=== PATIENT | female | born 1970 | race Two or more races ===

== ENCOUNTER 2019-04-27 18:26 | Emergency (ER) | payer SELFPAY ==
--- NOTE | 2019-04-27 20:16 | ER Document Report ---
ED Medical Screen (RME) - General Chief Complaint: Urinary Problem Stated Complaint: URINARY ISSUE Time Seen by Provider: 04/27/19 20:07 Primary Care Provider: POWER PERALES [Primary Care Provider] - Follow up as needed Notes: HPI: 48-year-old insulin-dependent diabetic female presenting to the emergency department complaining of worsening lower abdominal pain over the last week. No fever. Has had nausea no vomiting. Patient states that she began having discomfort with urination in February. She was told she had a urinary infection. Patient states that she did have an ultrasound and was told that she had "air around the bladder". She states she was placed on antibiotics and referred to urology. Patient states she has been following with Dr. Rocha urology in [place]. States that she is still on antibiotics feels no better. Patient reports pain across the pelvis and lower abdomen. Patient states they tried to do cystoscopy but were unable to get a definitive look at what might be causing the problem. Patient states that she is no longer able to urinate and has to self catheterize at home in order to void I have greeted and performed a rapid initial assessment of this patient. A comprehensive ED assessment and evaluation of the patient, analysis of test results and completion of the medical decision making process will be conducted by additional ED providers PHYSICAL EXAMINATION: GENERAL: Well-appearing, well-nourished and in mild acute distress. HEAD: Atraumatic, normocephalic. EYES: sclera anicteric, conjunctiva are normal. ENT: Moist mucous membranes. NECK: Normal range of motion LUNGS: Normal work of breathing HEART: 2+ radial pulses bilaterally ABD: limited by positioning for exam in triage. Moderate tenderness with guarding across the lower abdomen and suprapubic region EXTREMITIES: no pitting or edema. No cyanosis. NEUROLOGICAL: No focal neurological deficits. Moves all extremities spontaneously and on command. PSYCH: Normal mood, normal affect. SKIN: Warm, Dry, normal turgor, no rashes or lesions noted. - Related Data Allergies/Adverse Reactions: No Known Allergies Allergy (Verified 04/27/19 20:03) Past Medical History - Past Medical History Cardiac Medical History: Reports: Hx Hypertension Endocrine Medical History: Reports: Hx Diabetes Mellitus Type 2 Past Surgical History: Reports: Hx Section, Hx Tubal Ligation - Immunizations Hx Diphtheria, Pertussis, Tetanus Vaccination: Yes Physical Exam - Vital signs Vitals: Temp Pulse Resp BP 98.5 F 105 H 20 135/77 H 04/27/19 20:08 04/27/19 20:08 04/27/19 20:08 04/27/19 20:08 Course - Vital Signs Vital signs: Temp Pulse Resp BP Pulse Ox 98.5 F 105 H 20 135/77 H 04/27/19 20:08 04/27/19 20:08 04/27/19 20:08 04/27/19 20:08 Doctor's Discharge - Discharge Referrals: LOCALMD,NO [Primary Care Provider] - Follow up as needed
[2019-04-27 21:26] LABS: ABSOLUTE BASOPHILS # (AUTO) 0.1 10^3/uL (0.0-0.2); ABSOLUTE EOSINOPHILS # (AUTO) 0.1 10^3/uL (0.0-0.6); ABSOLUTE LYMPHOCYTES (AUTO) 2.6 10^3/uL (0.5-4.7); ABSOLUTE MONOCYTES (AUTO) 0.7 10^3/uL (0.1-1.4); ABSOLUTE NEUT (AUTO) 8.4 10^3/uL (1.7-8.2); BASOPHILS % (AUTO) 0.7 % (0-2); EOSINOPHILS % (AUTO) 0.9 % (0-6); HEMATOCRIT 41.4 % (36.0-47.0); HEMOGLOBIN 14.2 g/dL (12.0-15.5); LYMPHOCYTES % (AUTO) 21.6 % (13-45); MEAN CORPUSCULAR HEMOGLOBIN 29.5 pg (27.0-33.4); MEAN CORPUSCULAR HGB CONC 34.3 g/dL (32.0-36.0); MEAN CORPUSCULAR VOLUME 86 fl (80-97); MONOCYTES % (AUTO) 5.8 % (3-13); PLATELET COUNT 239 10^3/uL (150-450); RED BLOOD COUNT 4.81 10^6/uL (3.72-5.28); RED CELL DISTRIBUTION WIDTH 13.7 % (11.5-14.0); TOTAL CELLS COUNTED % (AUTO) 100 %; WHITE BLOOD COUNT 11.8 10^3/uL (4.0-10.5)
[2019-04-27 21:40] LABS: ALBUMIN 4.3 g/dL (3.5-5.0); ALKALINE PHOSPHATASE 175 U/L (38-126); ANION GAP 11 (5-19); ASPARTATE AMINO TRANSFERASE 31 U/L (14-36); BILIRUBIN,DIRECT 0.1 mg/dL (0.0-0.4); BILIRUBIN,TOTAL 0.5 mg/dL (0.2-1.3); BLOOD UREA NITROGEN 16 mg/dL (7-20); CALCIUM 9.6 mg/dL (8.4-10.2); CARBON DIOXIDE 22 mmol/L (22-30); CHLORIDE 106 mmol/L (98-107); GLUCOSE 142 mg/dL (75-110); POTASSIUM 4.1 mmol/L (3.6-5.0); TOTAL PROTEIN 7.6 g/dL (6.3-8.2)
--- NOTE | 2019-04-27 23:30 | RADIOLOGY REPORT (SQ) ---
EXAM DESCRIPTION: CT ABDOMEN PELVIS WITH IV CONTRAST COMPLETED DATE/TME: 04/27/2019 20:14 CLINICAL HISTORY: 48 years, Female, lower abd pain COMPARISON: None. TECHNIQUE: [id number] Images stored on PACS. All CT scanners at this facility use dose modulation, iterative reconstruction, and/or weight based dosing when appropriate to reduce radiation dose to as low as reasonably achievable (ALARA). [facility]: Dose Right [facility]: CareDose [facility]: Dose Right [facility]: Teradose 4D [facility]: KRAFTWERK LIMITATIONS: None. FINDINGS: Visualized lung bases are unremarkable. Osseous structures are grossly intact. Fatty infiltrative change to the liver. The spleen, adrenal glands, pancreas, right kidney are unremarkable. Severely atrophic appearance to the left kidney with left renal cortical scar formation. Nonobstructing 2 mm left renal calculus inferiorly. Partially exophytic 10 mm right renal cyst noted. The gallbladder is present, contracted. There is no evidence for bowel obstruction. Normal appendix. Scattered colonic diverticuli. No CT evidence for acute diverticulitis. Diffuse urinary bladder wall thickening. Outpouching of the left aspect of the urinary bladder consistent with urinary bladder diverticulum. No free air or free fluid. IMPRESSION: Fatty infiltrative change to the liver. Diffuse urinary bladder wall thickening, correlate with urinalysis. 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 Scattered colonic diverticuli without CT evidence for diverticulitis. Severe left renal atrophy and cortical scar formation. Nonobstructing left renal calculus.. TECHNICAL DOCUMENTATION: Quality ID # [id number]: Final reports with documentation of one or more dose reduction techniques (e.g., Automated exposure control, adjustment of the mA and/or kV according to patient size, use of iterative reconstruction technique) copyright 2011 [employer]- All Rights Reserved
[2019-04-28] MEDS ORDERED: LIDOCAINE 2% URO-JET 5 ML KIT MM ONE (02:38)
[2019-04-28] MEDS ORDERED: MORPHINE SULFATE 10 MG/ML INJ IV ONE (02:38)
[2019-04-28] MEDS ORDERED: ONDANSETRON HCL INJ/PF 4 MG/2 ML SDV IV ONE (02:38)
--- NOTE | 2019-04-28 02:40 | ER Document Report ---
ED GI/ - General Chief Complaint: Urinary Problem Stated Complaint: URINARY ISSUE Time Seen by Provider: 04/27/19 20:07 Notes: Patient is a 48-year-old female that comes emergency department for chief complaint of lower abdominal pain. She states that she always has the pain and she has to self cath now for an undiagnosed urinary problem but she states the pain is worse today than usual. This is been going on for a couple months now. She was evaluated for inability to urinate by urology Dr. Rocha, she states that she had a CAT scan and a cystoscopy, she states she was told the cystoscopy was "cloudy and indeterminate". She states there is no diagnosis for why she has to self catheterize to this time other than there was air around the bladder and her bladder was swollen. She does not report a history of kidney stones, she has had a , tubal ligation, has a history of type 2 diabetes and hypertension. She is currently taking doxycycline for a urinary tract infection. - Related Data Allergies/Adverse Reactions: No Known Allergies Allergy (Verified 04/27/19 20:03) Past Medical History - General Information source: Patient - Social History Smoking Status: Former Smoker Frequency of alcohol use: None Drug Abuse: None Lives with: Family Family History: Reviewed & Not Pertinent Patient has suicidal ideation: No Patient has homicidal ideation: No - Past Medical History Cardiac Medical History: Reports: Hx Hypertension Endocrine Medical History: Reports: Hx Diabetes Mellitus Type 2 Past Surgical History: Reports: Hx Section, Hx Tubal Ligation - Immunizations Hx Diphtheria, Pertussis, Tetanus Vaccination: Yes Review of Systems - Review of Systems Constitutional: No symptoms reported EENT: No symptoms reported Cardiovascular: No symptoms reported Respiratory: No symptoms reported Gastrointestinal: See HPI Genitourinary: See HPI Female Genitourinary: No symptoms reported Musculoskeletal: No symptoms reported Skin: No symptoms reported Hematologic/Lymphatic: No symptoms reported Neurological/Psychological: No symptoms reported Physical Exam - Vital signs Vitals: Temp Pulse Resp BP 98.5 F 105 H 20 135/77 H 04/27/19 20:08 04/27/19 20:08 04/27/19 20:08 04/27/19 20:08 - Notes Notes: GENERAL: Alert, interacts well. No acute distress. HEAD: Normocephalic, atraumatic. EYES: Pupils equal, round, and reactive to light. Extraocular movements intact. ENT: Oral mucosa moist, tongue midline. Oropharynx unremarkable. Airway patent. Nares patent, no nasal septal hematoma, TM's intact. NECK: Full range of motion. Supple. Trachea midline. LUNGS: Clear to auscultation bilaterally, no wheezes, rales, or rhonchi. No respiratory distress. HEART: Regular rate and rhythm. No murmur ABDOMEN: Generalized tenderness of the lower abdomen and suprapubic area. Nonspecific otherwise, no guarding, no rigidity, bowel sounds present. GENITOURINARY: No lesions or concerning findings, Shalonda FERNANDEZ present during exam. EXTREMITIES: Moves all 4 extremities spontaneously. No edema, normal radial and dorsalis pedis pulses bilaterally. No cyanosis. BACK: no cervical, thoracic, lumbar midline tenderness. No saddle anesthesia, normal distal neurovascular exam. Moves all extremities in full range of motion. NEUROLOGICAL: Alert and oriented x3. Normal speech. Cranial nerves II through XII grossly intact. PSYCH: Normal affect, normal mood. SKIN: Warm, dry, normal turgor. No rashes or lesions noted. Course - Re-evaluation Re-evalutation: Patient is reporting that her symptoms have been going on a while but she has more pain with this tonight. She does not appear to be in distress, she has no fever, she is smiling and well-appearing. She is not tachycardic on my exam. We did place a straight catheter and this did have slow drainage, this drained out about 400 cc over time. I asked about the slow drainage of the bladder and patient states this is also her baseline. Patient has some mild generalized tenderness of the lower abdomen but her exam is otherwise actually very unremarkable. No CVA tenderness. Mild leukocytosis at 11,000 without elevation of bands. Chemistry unremarkable including renal function. Urinalysis was a catheterized sample but still has some squamous epithelials, does show evidence of infection. Culture placed. CAT scan reviewed. CAT scan showing thickened bladder wall, bladder diverticulum, scarring of the left kidney with a left kidney stone. I discussed with patient all these details and she states she is actually already familiar with all of this. Does not appear anything acute or new. I discussed with Dr. Peraza. I discussed with patient. Patient has already been on Keflex, Cipro, and is now on doxycycline. I do not have a urine culture results. Patient states that she would like something for symptom management and she will take all of her reports and labs to her urologist and call them in the morning. Patient was provided with something to take only if absolutely needed, discussed precautions in regards to this. I did look her up on [employer] and this shows no recent prescriptions, patient does not exhibit concerning behavior. Patient states appreciation for care and states she will return if she worsens, this was discussed in detail. Stable at time of discharge. - Vital Signs Vital signs: Temp Pulse Resp BP Pulse Ox 97.8 F 76 16 119/62 99 04/28/19 07:03 04/28/19 07:03 04/28/19 07:03 04/28/19 07:03 04/28/19 07:03 - Laboratory Result Diagrams: 04/27/19 21:09 04/27/19 21:09 Laboratory results interpreted by me: 04/27/19 04/27/19 04/28/19 21:09 21:09 04:09 WBC 11.8 H Absolute Neuts (auto) 8.4 H Glucose 142 H Alkaline Phosphatase 175 H Urine Protein 100 H Urine Blood MODERATE H Ur Leukocyte Esterase SMALL H Discharge - Discharge Clinical Impression: Urinary problem, Lower abdominal pain Condition: Stable Disposition: HOME, SELF-CARE Additional Instructions: Please take your labs and a copy of your CAT scan to your urologist, call them today for close follow-up because of your symptoms. Only take the prescribed pain medication for severe pain, however if pain continues to worsen, you develop vomiting or fever, or you worsen in any other way return immediately to the emergency department. I recommend a stool softener to avoid constipation if you do take the medicine. Prescriptions: Polyethylene Glycol 3350 [Miralax Powder 17 gm/Packet] 1 packet PO DAILY #1 pkg Oxycodone HCl/Acetaminophen [Percocet 5-325 mg Tablet] 1 - 2 tab PO TID PRN #15 tablet PRN Reason: Forms: Return to Work
[2019-04-28 05:27] LABS: APPEARANCE,URINE SLIGHTLY-CLOUDY; BILIRUBIN,URINE NEGATIVE (NEGATIVE); COLOR,URINE YELLOW; GLUCOSE, URINE NEGATIVE (NEGATIVE); KETONES,URINE NEGATIVE (NEGATIVE); LEUKOCYTE ESTERASE,URINE SMALL (NEGATIVE); NITRITE,URINE NEGATIVE (NEGATIVE); PROTEIN,URINE 100 mg/dL (NEGATIVE); URINE SPECIFIC GRAVITY 1.045; UROBILINOGEN,URINE NEGATIVE mg/dL (<2.0)
[2019-04-28] MEDS ORDERED: HYDROCODONE/ACETAMINOPHEN 5-325 MG (6 TAB/ER DISP) PO PRN (06:13)
[2019-04-28 07:07] VITALS: BP 119/62
== END 2019-04-28 07:03 | disposition home or self-care (01) ==
LOC: ER 18:26
DX: N39.0 Urinary tract infection, site not specified (principal); N20.0 Calculus of kidney; N32.3 Diverticulum of bladder; R10.30 Lower abdominal pain, unspecified; E11.9 Type 2 diabetes mellitus without complications; I10 Essential (primary) hypertension; Z87.891 Personal history of nicotine dependence
CPT/HCPCS: 36415; 85025; 80053; 81001; 74177; J2270; J2405; J3490; 87086